=== PATIENT | female | born 1995 | race African-American/Black ===

== ENCOUNTER 2018-10-03 18:34 | Emergency (ER) | payer SELFPAY ==
[~2018-10-03] VITALS: Ht 154.9 cm; Wt 78.5 kg
[2018-10-03 19:36] VITALS: BP 105/67
[2018-10-03 21:21] LABS: CLARITY URINE CLOUDY (CLEAR); COLOR URINE YELLOW (YELLOW); KETONES URINE TRACE (NEGATIVE); LEUKOCYTE ESTERASE URINE NEGATIVE (NEGATIVE); NITRITE URINE NEGATIVE (NEGATIVE); OCCULT BLOOD URINE 3+ (NEGATIVE); PROTEIN URINE 1+ (NEGATIVE); UROBILINOGEN URINE 0.2 E.U./dL (0.2-1.0)
[2018-10-03 22:07] LABS: CHLORIDE 106 mEq/L (98-107)
[2018-10-03] MEDS ORDERED: IOHEXOL-300 100 ML BOTTLE ONE (23:12)
[2018-10-04] MEDS ORDERED: ACETAMINOPHEN 500MG TABLET PO ONE (01:15)
[2018-10-04] MEDS ORDERED: ACETAMINOPHEN 650MG/20.3ML UDC PO ONE (01:15)
== END 2018-10-04 01:12 | disposition home or self-care (01) ==
LOC: ER 18:34
DX: M25.531 Pain in right wrist (principal); R10.32 Left lower quadrant pain; F41.9 Anxiety disorder, unspecified; J45.909 Unspecified asthma, uncomplicated; F31.9 Bipolar disorder, unspecified; F20.9 Schizophrenia, unspecified; V89.2XXA Person injured in unspecified motor-vehicle accident, traffic, initial encounter; Y93.89 Activity, other specified; Y92.89 Other specified places as the place of occurrence of the external cause; Y99.8 Other external cause status
CPT/HCPCS: 29125; 36415; 73130; 74176; 80048; 81003; 81025; 99284; Q9967